=== PATIENT | male | born 1955 | race Caucasian/White ===

== ENCOUNTER 2018-06-07 09:18 | Day surgery (SDC) | payer OTHER ==
[~2018-06-07] VITALS: Ht 182.9 cm; Wt 81.6 kg
[~2018-06-07 09:18] MED LIST: PROPOFOL 200 MG INJ ONE
[2018-06-07] MEDS ORDERED: LISINOPRIL (10:25)
[2018-06-07] MEDS ORDERED: METFORMIN (10:25)
[2018-06-07] MEDS ORDERED: ASPIRIN (10:25)
[2018-06-07 10:33] VITALS: Ht 182.9 cm; Wt 81.6 kg
[2018-06-07 10:41] VITALS: BP 123/73; PULSE 71; RESP 14
--- NOTE | 2018-06-07 10:43 | PREAC ---
Date/Time of Note Date/Time of Note DATE: 06/07/18 TIME: 10:43 Anesthesia Eval and Record Evaluation Time Pre-Procedure Interview DATE: 06/07/18 TIME: 10:43 Age 62 Sex male NPO: 8 hrs Preoperative diagnosis screening Planned procedure colonoscopy Past Medical History Past Medical History: Includes Endo: Diabetes Surgery & Anesthesia Issues No known issue Meds Anticoagulation: No Beta Felisa within 24 hr: No Reason Beta Felisa not given: Pt. not on B-Felisa Reported Medications [Aspirin] No Conflict Check 06/07/18 [Lisinopril] No Conflict Check 06/07/18 [Metformin] No Conflict Check 06/07/18 Meds reviewed: Yes Allergies Allergies Reviewed: Yes Labs/Studies Labs Reviewed: Reviewed by anesthesiologist test: N/A Pre-procedure Exam Last vitals Vital Signs Date Temp Pulse Resp B/P (MAP) Pulse Ox O2 O2 Flow FiO2 Time Delivery Rate 06/07/18 97.6 71 14 123/73 97 Room Air 10:41 (90) Airway: Adequate mouth opening, Adequate thyromental dist Mallampati: Mallampati II Teeth: Normal Lung: Normal Heart: Normal ASA Physical Status ASA physical status: 2 Emergency: None Planned Anesthetic General/MAC: MAC Planned Pain Management Parenteral pain med Pre-operative Attestations Prior to commencing anesthesia and surgery, the patient was re-evaluated, there was verification of: *The patient's identity *The results of appropriate recent lab work and preoperative vital signs *The above evaluation not changing prior to induction *Anesthetic plan, risk benefits, alternative and complications discussed with patient/family; questions answered; patient/family understands, accepts and wish es to proceed. Guille Henderson M.D. Jun 07, 2018 10:43
[2018-06-07] MEDS ORDERED: LIDOCAINE 100 MG SYRINGE ONE (10:45)
[2018-06-07] MEDS ORDERED: PROPOFOL 40 ML ONE (10:45)
[2018-06-07] MEDS ORDERED: GLYCOPYRROLATE 0.4 MG INJ ONE (10:57)
[2018-06-07] MEDS ORDERED: EPHEDrine SULFATE 50 MG/5 ML SYG IV PRN (11:00)
[2018-06-07] MEDS ORDERED: FENTAnyl 50 MCG/ML VIAL IV PRN ×3 (11:00)
[2018-06-07] MEDS ORDERED: TRIMETHOBENZAMIDE 100 MG/ML VIAL IM PRN (11:00)
[2018-06-07] MEDS ORDERED: ALBUTEROL 0.083% (NEB) 2.5 MG/3 ML AMP HHN PRN (11:00)
[2018-06-07] MEDS ORDERED: IPRATROPIUM (NEB) 0.5 MG/2.5 ML AMP HHN PRN (11:00)
[2018-06-07] MEDS ORDERED: DIPHENHYDRAMINE 50 MG INJ IV PRN (11:00)
[2018-06-07] MEDS ORDERED: HYDROmorphONE 1 MG/5 ML IV SYRINGE IV PRN ×3 (11:00)
[2018-06-07] MEDS ORDERED: LABETALOL HCL 20MG INJ IV PRN (11:00)
[2018-06-07] MEDS ORDERED: hydrALAzine 20 MG INJ IV PRN (11:00)
[2018-06-07] MEDS ORDERED: OXYCODONE/ACETAMINOPHEN (5/325) TAB PO PRN ×2 (11:00)
[2018-06-07] MEDS ORDERED: MEPERIDINE 25 MG INJ IV PRN (11:00)
[2018-06-07] MEDS ORDERED: MIDAZOLAM 1 MG/ML 2 ML INJ IV PRN (11:00)
[2018-06-07] MEDS ORDERED: ONDANSETRON 4 MG INJ IV PRN (11:00)
--- NOTE | 2018-06-07 11:33 | PAC ---
Date/Time of Note Date/Time of Note DATE: 06/07/18 TIME: 11:33 Post-Anesthesia Notes Post-Anesthesia Note Last documented vital signs Vital Signs Date Temp Pulse Resp B/P (MAP) Pulse Ox O2 O2 Flow FiO2 Time Delivery Rate 06/07/18 97.6 71 14 123/73 97 Room Air 11:13 (90) Activity: WNL Respiratory function: WNL Cardiovascular function: WNL Mental status: Baseline Pain reasonably controlled: Yes Hydration appropriate: Yes Nausea/Vomiting absent: Yes Guille Henderson M.D. Jun 07, 2018 11:33
[2018-06-07 11:38] VITALS: BP 114/83; PULSE 64; RESP 18
--- NOTE | 2018-06-07 18:49 | CONS ---
DATE OF ADMISSION: 06/07/2018 DATE OF CONSULTATION: PATIENT NAME: YELENA TAYLOR TYPE OF CONSULTATION: Preoperative gastroenterology. Dear Dr. Paniagua: I thank you very much for this kind referral. HISTORY OF PRESENT ILLNESS: Mr. Yelena Taylor is a 62-year-old male patient who has been referred to me for further evaluation of rectal bleeding. The patient has history of colon polyps. He needs screening colonoscopy. His appetite has been good and he is not losing any weight. No upper abdomin al pain, nausea or vomiting. He is on baby aspirin a day. No history of gallstones or liver disease . PAST MEDICAL HISTORY: He is hypertensive. He has diabetes. No heart disease or lung problem. The patient has a history of renal stones. He is status post appendectomy. SOCIAL HISTORY: He is a nonsmoker, but smokes marijuana. FAMILY HISTORY: Sister had pancreatic cancer. ALLERGIES: NO DRUG ALLERGIES. MEDICATIONS: 1. Metformin. 2. Lisinopril. 3. Aspirin 81 mg. PHYSICAL EXAMINATION: VITAL SIGNS: He is 6 feet tall and weighs 190 pounds. HEART: Normal heart sounds. LUNGS: Clear. ABDOMEN: Soft. No masses. Normal bowel sounds. RECTAL: Deferred per the patient's request. It will be done at the time of colonoscopy. NEUROLOGIC: Normal. IMPRESSION: 1. Change in the bowel habit. 2. Rectal bleeding. 3. History of colon polyps. 4. The patient needs screening colonoscopy. 5. Hypertension. 6. Diabetes mellitus. 7. History of renal stones. 8. Status post appendectomy. 9. The patient's sister had pancreatic cancer. 10. The patient smokes marijuana. PLAN 1. Screening colonoscopy. 2. Because of the marijuana use, he will be resistant to narcotics and he needs monitored anesthesia care. The procedure and possible complications are well explained to the patient. He understands and conse nts to the procedure. I thank you once again. With warmest personal regards, Dictated By: MARCO ANTONIO BERNARD/ELLEN Conf#: [id number] DID#: [id number]
== END 2018-06-07 14:42 | disposition home or self-care (01) ==
LOC: GIL 09:18
PROVIDERS: ATTEND Internal Medicine Gastroenterology
DX: Z12.11 Encounter for screening for malignant neoplasm of colon (principal); D12.5 Benign neoplasm of sigmoid colon; K64.8 Other hemorrhoids; E11.9 Type 2 diabetes mellitus without complications
CPT/HCPCS: 45380; 82962; 88305; J2001